=== PATIENT | female | born 1940 | race Caucasian/White ===

== ENCOUNTER 2016-08-24 08:35 | Emergency (ER) | payer OTHER | END 2016-08-24 11:45 | disposition home or self-care (01) | LOC: ER 08:35 | DX: S50.01XA Contusion of right elbow, initial encounter (principal); W01.0XXA Fall on same level from slipping, tripping and stumbling without subsequent striking against object, initial encounter; Y92.019 Unspecified place in single-family (private) house as the place of occurrence of the external cause; S93.602A Unspecified sprain of left foot, initial encounter ==